=== PATIENT | female | born 1965 | race Caucasian/White ===

== ENCOUNTER 2019-03-05 20:43 | Emergency (ER) | payer OTHER ==
[~2019-03-05] VITALS: Ht 170.2 cm; Wt 113.4 kg
[~2019-03-05 20:43] MED LIST: AMLODIPINE BESY10 MG; AMOXICILLIN 50500 MG PO; ANTIDEPRESSANT; BACTRIM DS TAB1 EACH PO; DIURETIC; K-DUR10 MEQ; NEURONTIN 300300 M1; NORCO 5-325 TA1 EACH PO; NORVASC 5 MG TAB5 MG PO; PROZAC20 MG PO; SINUS & ALLERG1 EAC1; TOPROL XL100 MG
[2019-03-05] MEDS ORDERED: ZOLOFT100 MG PO (21:09)
[2019-03-05] MEDS ORDERED: AMARYL4 MG PO (21:10)
[2019-03-05] MEDS ORDERED: PROTONIX40 M1 PO (21:10)
[2019-03-05 21:46] LABS: ABSOLUTE BASOPHILS 0.1 thou/uL (0.0-0.2); ABSOLUTE EOSINOPHILS 0.1 thou/uL (0.0-0.7); ABSOLUTE LYMPHOCYTES 2.3 thou/uL (0.8-5.3); ABSOLUTE MONOCYTES 0.3 thou/uL (0.0-1.2); ABSOLUTE NEUTROPHILS 7.2 thou/uL (1.6-8.1); BASOPHILS 1.2 %; EOSINOPHILS 1.1 %; HEMATOCRIT 49.3 % (37.0-47.0); HEMOGLOBIN 17.2 gm/dL (12.0-15.0); LYMPHOCYTES 22.8 %; MCH 32.4 pg (26.0-34.0); MCHC 34.8 g/dL (28.0-37.0); MPV 8.8 fl. (7.2-11.1); NUCLEATED RBCS 0 /100WBC; PLATELET COUNT* 207 thou/uL (150-400); POLYS 71.9 %; RDW-CV 15.9 % (10.5-14.5)
[2019-03-05 21:49] LABS: CALCIUM 9.8 mg/dL (8.5-10.1); CREATININE 0.9 mg/dL (0.6-1.3); POTASSIUM 3.3 mmol/L (3.5-5.1)
[2019-03-05 21:56] LABS: ALBUMIN 4.1 g/dL (3.4-5.0); TOTAL BILIRUBIN 0.5 mg/dL (<0.1-1.0); TOTAL PROTEIN 8.2 g/dL (6.4-8.2)
[2019-03-05] MEDS ORDERED: SYNTHROID100 MC1 PO (22:10)
[2019-03-05] MEDS ORDERED: SYNTHROID150 MCG PO (22:14)
[2019-03-05 22:37] VITALS: BP 163/98
--- NOTE | 2019-03-07 12:36 | EKG ---
[place] [address] ELECTROCARDIOGRAM REPORT Name: ANASTACIO BRAND Room: [facility]#: [id number] Admission: 03/05/19 Attend Phys: Discharge: 03/05/19 Date of : 63 Report #: [id number] THIS REPORT FOR: //name// [facility] ED Test Date: 2019-03-05 Test Time: 21:22:00 Pat Name: ANASTACIO BRAND Department: Room: Gender: F [employer]: [place] : 1965 Requested By: Philly Jones Order Number: [id number] MD: Jerome Hannah Measurements Intervals [place] Rate: 77 P: 39 [place]: 179 QRS: 5 QRSD: 92 T: 37 QT: 512 QTc: 580 Interpretive Statements Sinus rhythm Borderline T abnormalities, diffuse leads Prolonged QT interval Baseline wander in lead(s) II,III,aVF Compared to ECG 02/03/2015 20:50:51 T-wave abnormality now present Prolonged QT interval now present Electronically Signed On 03-07-2019 12:36:12 CDT by Jerome Hannah [email or web address] <ELECTRONICALLY SIGNED> By: Jerome Hannah MD, FACC 03/07/19 1236 21 21 Jerome Hannah MD, [facility] /EPI
== END 2019-03-05 22:38 | disposition home or self-care (01) ==
LOC: M.ERS 20:43
PROVIDERS: Personal Emergency Response Attendant
DX: E03.9 Hypothyroidism, unspecified (principal); I10 Essential (primary) hypertension; E11.9 Type 2 diabetes mellitus without complications; F32.9 Major depressive disorder, single episode, unspecified; Z90.89 Acquired absence of other organs; Z98.51 Tubal ligation status; Z98.890 Other specified postprocedural states

== ENCOUNTER 2020-02-24 12:30 | Emergency (ER) | payer OTHER ==
[~2020-02-24] VITALS: Ht 167.6 cm; Wt 109.8 kg
[~2020-02-24 12:30] MED LIST changes: +AMARYL4 MG PO; +PROTONIX40 M1 PO; +SYNTHROID100 MC1 PO; +SYNTHROID150 MCG PO; +ZOLOFT100 MG PO
[2020-02-24] MEDS ORDERED: LEVO-T25 MCG PO (12:46)
[2020-02-24 13:05] LABS: ABSOLUTE EOSINOPHILS 0.1 thou/uL (0.0-0.7); ABSOLUTE LYMPHOCYTES 1.6 thou/uL (0.8-5.3); ABSOLUTE MONOCYTES 0.2 thou/uL (0.0-1.2); ABSOLUTE NEUTROPHILS 4.5 thou/uL (1.6-8.1); BASOPHILS 0.7 %; HEMATOCRIT 48.1 % (37.0-47.0); HEMOGLOBIN 16.9 gm/dL (12.0-15.0); LYMPHOCYTES 24.9 %; MCH 32.2 pg (26.0-34.0); MCHC 35.1 g/dL (28.0-37.0); MCV 91.9 fL (80.0-100.0); MONOCYTES 3.3 %; MPV 8.9 fl. (7.2-11.1); NUCLEATED RBCS 0 /100WBC; PLATELET COUNT* 174 thou/uL (150-400); POLYS 70.1 %; RBC 5.23 mil/uL (4.20-5.00); WBC 6.5 thou/uL (4.0-11.0)
[2020-02-24 13:17] LABS: CALCIUM 9.2 mg/dL (8.5-10.1); CREATININE 0.9 mg/dL (0.6-1.3); POTASSIUM 3.8 mmol/L (3.5-5.1)
[2020-02-24 13:19] LABS: APTT 25.1 Seconds (25.0-31.3); PROTIME 10.2 Seconds (9.20-11.50)
[2020-02-24 13:27] LABS: ALBUMIN 3.6 g/dL (3.4-5.0); TOTAL BILIRUBIN 0.5 mg/dL (<0.1-1.0); TOTAL PROTEIN 7.7 g/dL (6.4-8.2)
[2020-02-24] MEDS ORDERED: NORVASC10 MG PO (13:39)
[2020-02-24] MEDS ORDERED: LEVOTHYROXINE150 MCG PO (15:10)
[2020-02-24] MEDS ORDERED: NORCO 5-325 TA1 EAC2 PO (15:10)
[2020-02-24 15:30] VITALS: BP 162/99
--- NOTE | 2020-02-24 16:05 | EKG ---
[place] [address] ELECTROCARDIOGRAM REPORT Name: ANASTACIO BRAND Room: [facility]#: [id number] Admission: 02/24/20 Attend Phys: Discharge: 02/24/20 Date of : 63 Date of Service: 02/24/20 1252 Report #: [id number] THIS REPORT FOR: //name// [facility] ED Test Date: 2020-02-24 Test Time: 12:52:29 Pat Name: ANASTACIO BRAND Department: Room: Gender: F Clinic Md Associate: [facility] [place] [place] : 1965 Requested By: Chuy Horton Order Number: [id number] MD: Nic Sanz Measurements Intervals [place] Rate: 87 P: 11 [place]: 158 QRS: -1 QRSD: 92 T: 30 QT: 344 QTc: 414 Interpretive Statements Sinus rhythm Left ventricular hypertrophy Compared to ECG 03/05/2019 21:22:00 Left ventricular hypertrophy now present T-wave abnormality no longer present Prolonged QT interval no longer present Electronically Signed On 02-24-2020 16:05:46 CDT by Nic Sanz [email or web address] <ELECTRONICALLY SIGNED> By: Nic Sanz MD, [facility] 02/24/20 1605 1252 1252 Nic Sanz MD, [facility] /EPI
== END 2020-02-24 15:31 | disposition home or self-care (01) ==
LOC: M.ERS 12:30
PROVIDERS: Family Medicine
DX: I10 Essential (primary) hypertension (principal); E11.9 Type 2 diabetes mellitus without complications; F32.9 Major depressive disorder, single episode, unspecified; Z98.890 Other specified postprocedural states; Z90.49 Acquired absence of other specified parts of digestive tract